=== PATIENT | female | born 1955 | race Caucasian/White ===

== ENCOUNTER → 2018-03-13 | Day surgery (SDC) | payer OTHER ==
--- NOTE | 2018-03-14 14:54 | PATH ---
Cytology Non-Gynecological Report Patient Name: MARBELLA VIRAMONTES [facility]. Rec. #: [id number] /Age/Gender: 1955 (Age: 62) / F Account: [id number] Location: RADIOLOGY [facility] Taken: 03/13/2018 Received: 03/13/2018 Reported: 03/14/2018 Physicians: Raman Hope M.D. Specimen(s) Received RIGHT BREAST 6.00 O.5 CYST-APSIRATED Clinical History Right breast 0.5 cm cyst Final Diagnosis RIGHT BREAST 6:00, CYST, FINE NEEDLE ASPIRATION: SATISFACTORY FOR EVALUATION NO MALIGNANT CELLS IDENTIFIED. AMORPHOUS MATERIAL ADMIXED WITH DEGENERATED CELLS, CONSISTENT WITH CYSTIC CONTENTS. Electronically Signed Jefferson Escamilla M.D. Gross Description Approximately 10cc of clear fluid received fixed in 50% alcohol. Two cytofunnels prepared.
== END | disposition home or self-care (01) ==
LOC: JRADUS-SUR 08:14
PROVIDERS: ATTEND Family Medicine Geriatric Medicine
PROC: 0H9T3ZX Drainage of Right Breast, Percutaneous Approach, Diagnostic (ICD-10-PCS; principal; 2018-03-13)
DX: N60.01 Solitary cyst of right breast (principal)
CPT/HCPCS: 76942-TC; 88173

== ENCOUNTER → 2021-08-27 | Day surgery (SDC) | payer OTHER | END | disposition home or self-care (01) | LOC: FMAMMOTONE 11:39 | PROVIDERS: ATTEND Registered Nurse | PROC: 0HBU3ZX Excision of Left Breast, Percutaneous Approach, Diagnostic (ICD-10-PCS; principal; 2021-08-27) | DX: N60.32 Fibrosclerosis of left breast (principal); N60.92 Unspecified benign mammary dysplasia of left breast; N64.89 Other specified disorders of breast; R92.0 Mammographic microcalcification found on diagnostic imaging of breast | CPT/HCPCS: 19081; 76098-TC-FY; 87899; 88305-TC; A4648 ==

== ENCOUNTER 2022-11-04 12:27 | Emergency (ER) | payer OTHER ==
[2022-11-04 12:52] VITALS: RESP 18; BMI 25.7
[2022-11-04] MEDS ORDERED: morphine CARPU-JECT 2 MG/1 ML DISP.SYRIN IVPUSH ONE (13:36)
[2022-11-04] MEDS ORDERED: LACTATED RINGERS SOLUTION 1,000 ML/1,000 ML INFUS.BAG IV SCH (13:45)
[2022-11-04 15:01] LABS: BASO % 0.9 % (0-2.0); EOS % 5.3 % (0-4.5); HEMATOCRIT 36.6 % (32.4-45.2); HEMOGLOBIN 12.8 GM/dL (10.7-15.3); LYMPH % 34.5 % (8-40); MCH 28.1 pg (25.7-33.7); MCHC 34.9 g/dl (32.0-36.0); MEAN CELL VOLUME 80.7 fl (80-96); MEAN PLT VOLUME 8.5 fl (7.5-11.1); MONO % 10.5 % (3.8-10.2); NEUT % 48.8 % (42.8-82.8); PLATELET COUNT 228 10^3/uL (134-434); RBC 4.54 M/mm3 (3.60-5.2); RDW 13.1 % (11.6-15.6); WHITE BLOOD COUNT 4.5 K/mm3 (4.0-10.0)
[2022-11-04 15:09] LABS: INR 1.06 (0.83-1.09); PROTHROMBIN TIME (PATIENT) 12.3 SEC (9.7-13.0)
[2022-11-04 15:12] LABS: ACTIVATED PTT 30.9 SECONDS (25.2-36.5)
[2022-11-04 15:21] LABS: ALBUMIN 3.7 g/dl (3.4-5.0); CALCIUM 9.5 mg/dL (8.5-10.1)
[2022-11-04 15:22] LABS: BLOOD UREA NITROGEN 14.8 mg/dL (7-18)
[2022-11-04 15:23] LABS: CREATININE 0.7 mg/dL (0.55-1.3)
[2022-11-04 15:26] LABS: BILIRUBIN,TOTAL 0.6 mg/dL (0.2-1); TOT PROT 6.6 g/dl (6.4-8.2)
[2022-11-04 15:44] VITALS: BP 136/74; PULSE 98; TEMP 98.4
== END 2022-11-04 17:30 | disposition home or self-care (01) ==
LOC: JER 12:27
DX: K80.51 Calculus of bile duct without cholangitis or cholecystitis with obstruction (principal); Z20.822 Contact with and (suspected) exposure to COVID-19
CPT/HCPCS: 36415; 76705-TC; 80053; 83690; 84484; 85025; 85610; 85730; 86850; 86900; 86901; 93005; 93010; 99285-25; C9803-CS; U0003; U0005